=== PATIENT | male | born 1980 | race Caucasian/White ===

== ENCOUNTER 2017-10-23 19:33 | Emergency (ER) | payer OTHER ==
[~2017-10-23] VITALS: Ht 167.6 cm; Wt 65.8 kg
[2017-10-23 20:29] LABS: AMPHETAMINE QUAL UR NONE DETECTED (NEG <=1000)
[2017-10-23 20:31] LABS: BASOPHIL % 0.5 % (0-2); PLATELET COUNT 317 x10^3mcL (130-400)
[2017-10-23 20:43] LABS: CALCIUM 8.5 mg/dL (8.5-10.1); CARBON DIOXIDE 27.6 mmol/L (21-32); CHLORIDE SERUM 110 mmol/L (98-107); CREATININE SERUM 0.4 mg/dL (0.7-1.3); GFR1 > 60 mL/min; GLUCOSE SERUM 124 mg/dL (74-106); POTASSIUM SERUM 3.6 mmol/L (3.5-5.1); SODIUM SERUM 148 mmol/L (136-145)
[2017-10-23 20:49] LABS: ALKALINE PHOSPHATASE 60 U/L (46-116); ALT/SGPT 41 U/L (16-63); AST/SGOT 35 U/L (15-37); BILIRUBIN TOTAL 0.15 mg/dL (0.20-1.00); TOTAL PROTEIN, SERUM 7.7 g/dL (6.4-8.2)
[2017-10-24 00:40] VITALS: BP 105/89
== END 2017-10-24 00:40 | disposition home or self-care (01) ==
LOC: ED 19:33
PROVIDERS: Emergency Medicine
DX: F10.129 Alcohol abuse with intoxication, unspecified (principal)
CPT/HCPCS: G0480; J2250; J7030

== ENCOUNTER 2017-10-23 19:33 | Emergency (ER) | payer OTHER | END 2017-10-24 00:40 | disposition other institution (70) | LOC: ED 19:33 | DX: Z02.89 Encounter for other administrative examinations (principal) ==